=== PATIENT | female | born 1975 | race Caucasian/White ===

== ENCOUNTER 2017-11-13 10:03 | Day surgery (SDC) | payer OTHER ==
[2017-11-13] MEDS ORDERED: LR 1,000 ML IV ×2 (10:15→13:00)
[2017-11-13] MEDS ORDERED: MIDAZOLAM INJ 2 MG/2 ML VIAL (J2250) As Ordered (10:21)
[2017-11-13] MEDS ORDERED: PROPOFOL 200 MG/20 ML VIAL As Ordered (10:21)
[2017-11-13] MEDS ORDERED: fentaNYL 250 MCG/5 ML INJECTION (J3010) As Ordered (10:21)
[2017-11-13] MEDS ORDERED: dexameTHASONE 4 MG/ML 1ML VIAL (J1100) As Ordered (10:21)
[2017-11-13] MEDS ORDERED: ONDANSETRON 4MG/2ML VIAL (J2405) As Ordered (10:21)
[2017-11-13] MEDS ORDERED: KETOROLAC 60 MG/2 ML VIAL (J1885) As Ordered (10:21)
[2017-11-13] MEDS ORDERED: LIDOCAINE 2% INJ 100 MG/5 ML SDV (FOR ANES.) As Ordered (10:21)
[2017-11-13] MEDS: SILVER NITRATE APPLICATOR As Ordered (10:22)
[2017-11-13 10:53] LABS: HEMATOCRIT 41.6 % (36.0-47.0); HEMOGLOBIN 13.5 g/dl (12.0-15.5); MEAN CORPUSCULAR HEMOGLOBIN 29.5 pg (27.0-33.0); MEAN CORPUSCULAR HGB CONC 32.5 g/dl (32.0-36.5); PLATELET COUNT, AUTOMATED 293 10^3/uL (150-450); RED BLOOD COUNT 4.57 10^6/uL (4.00-5.40); RED CELL DISTRIBUTION WIDTH 13.2 % (11.5-14.5)
[2017-11-13 11:08] LABS: CONTROL LINE HCG INT CTR LINE PRESENT; HCG, SERUM QUALITATIVE NEGATIVE (NEGATIVE)
[2017-11-13] MEDS: ceFAZolin 2 GM/D5W 50 ML IV BAG (J0690 PER 500MG) As Ordered (11:46)
[2017-11-13] MEDS ORDERED: PHENYLephrine HCL 500 MCG/5 ML (100MCG/ML) SYRINGE (J2370) As Ordered (12:11)
[2017-11-13] MEDS: BUPIVACAINE HCL 0.25% 30 ML VIAL As Ordered (12:33)
[2017-11-13] MEDS: ESTROGENS VAGINAL CREAM 30GM As Ordered (12:33)
[2017-11-13] MEDS ORDERED: ONDANSETRON 4MG/2ML VIAL (J2405) IV (13:00)
[2017-11-13] MEDS ORDERED: HYDROMORPHONE HCL 0.5 MG/ 0.5 ML SYRINGE (J1170 PER 1) IV (13:00)
[2017-11-13] MEDS ORDERED: fentaNYL 100 MCG/2 ML INJECTION (J3010) IV (13:00)
[2017-11-13] MEDS: PERCOCET 5MG/325MG TAB PO (13:15)
== END 2017-11-13 14:15 | disposition home or self-care (01) ==
LOC: M SDC 14:15
DX: N75.0 Cyst of Bartholin's gland (principal)
CPT/HCPCS: 56440

== ENCOUNTER → 2018-03-20 | Outpatient (REF) | payer OTHER ==
[~2018-03-20] MED LIST: APAP/CODEINE
== END ==
LOC: M LAB REF 16:42
PROVIDERS: ATTEND Podiatrist Foot & Ankle Surgery
DX: L60.0 Ingrowing nail (principal)

== ENCOUNTER 2018-09-01 01:14 | Emergency (ER) | payer OTHER ==
[~2018-09-01] VITALS: Ht 154.9 cm; Wt 67.7 kg
[2018-09-01] MEDS ORDERED: ONDANSETRON 4 MG ORAL DISINTEGRATING TAB (Q0162 PER 1MG) PO ONE (02:45)
--- NOTE | 2018-09-01 04:00 | REPVR ---
EXAM: CT Head Without Contrast EXAM DATE/TIME: 09/01/2018 2:51 AM CLINICAL HISTORY: 42 years old, female; Injury or trauma; Fall; Initial encounter; Blunt trauma (contusions or hematomas); Injury date: Today; Additional info: Tr TECHNIQUE: Imaging protocol: Computed tomography images of the head without contrast. Radiation optimization: All CT scans at this facility use at least one of these dose optimization techniques: automated exposure control; mA and/or kV adjustment per patient size (includes targeted exams where dose is matched to clinical indication); or iterative reconstruction. COMPARISON: No relevant prior studies available. FINDINGS: Brain: The cortical/white matter interfaces are preserved throughout the brain. There is no evidence of intracranial hemorrhage. Ventricles: The ventricular system is normal in size and configuration. Bones/joints: No acute fractures of the skull are identified. Sinuses: The visualized paranasal sinuses are clear. Mastoid air cells: The mastoid air cells are clear. Soft tissues: Unremarkable. IMPRESSION: Normal appearance of the brain. No evidence of acute intracranial injury. Electronically signed by: Melany Daniel On 09/01/2018 03:59:52 AM
--- NOTE | 2018-09-01 04:08 | REPVR ---
EXAM: CT Cervical Spine Without Contrast EXAM DATE/TIME: 09/01/2018 2:51 AM CLINICAL HISTORY: 42 years old, female; Injury or trauma; Fall; Initial encounter; Blunt trauma; Injury date: Today; Additional info: Tr TECHNIQUE: Imaging protocol: Computed tomography images of the cervical spine without contrast. Coronal and sagittal reformatted images were created and reviewed. Radiation optimization: All CT scans at this facility use at least one of these dose optimization techniques: automated exposure control; mA and/or kV adjustment per patient size (includes targeted exams where dose is matched to clinical indication); or iterative reconstruction. COMPARISON: No relevant prior studies available. FINDINGS: Vertebrae: There is straightening of the cervical lordosis without subluxations. There is no evidence of acute fracture. Small anterior endplate spurs are seen from C4-C5 through C6-C7. Discs/Spinal canal/Neural foramina: At C4-C5, there is mild uncovertebral ridging. There is a small left paracentral disc protrusion. There is no significant central or foraminal narrowing. There is uncovertebral ridging and a disc osteophyte complex at C5-C6. There is asymmetric extension in the right paracentral location. There is mild central canal stenosis and right-sided foraminal narrowing at C5-C6. At C6-C7, there is mild disc narrowing, uncovertebral ridging and a disc osteophyte complex with a left paracentral disc protrusion. There is mild central canal stenosis and bilateral neuroforaminal narrowing, left worse than right. Prevertebral Space: The prevertebral soft tissues appear normal. Soft tissues: The paraspinous soft tissues appear unremarkable. Lungs: The visualized lungs are grossly clear. IMPRESSION: 1. Straightening of the cervical lordosis no subluxations or fractures identified. 2. Degenerative disc disease. Small asymmetric disc osteophyte complexes/protrusions at C4-C5, C5-C6, and C6-C7. Electronically signed by: Melany Daniel On 09/01/2018 04:07:38 AM
[2018-09-01 04:15] VITALS: BP 123/66
--- NOTE | 2018-09-01 04:15 | REPVR ---
EXAM: CT Chest Without Contrast EXAM DATE/TIME: 09/01/2018 2:51 AM CLINICAL HISTORY: 42 years old, female; Injury or trauma; Fall; Initial encounter; Blunt trauma (contusions or hematomas); Injury date: Today; Patient HX: RT clavical pain; Additional info: Tr TECHNIQUE: Imaging protocol: Axial computed tomography images of the chest without intravenous contrast. Coronal and sagittal reformatted images were created and reviewed. 3D rendering: MIP reconstructed images were created and reviewed. Radiation optimization: All CT scans at this facility use at least one of these dose optimization techniques: automated exposure control; mA and/or kV adjustment per patient size (includes targeted exams where dose is matched to clinical indication); or iterative reconstruction. COMPARISON: No relevant prior studies available. FINDINGS: Lungs: There is mild peripheral hazy density in the dependent portions of both lungs and predominantly linear opacities at both lung bases, likely due to to incomplete expansion and mild subsegmental atelectasis. Pleural space: There are no pleural effusions present. No pneumothorax is seen. Heart: The heart is normal in size. Aorta: The aorta is normal. No aneurysm. Lymph nodes: No lymphadenopathy is seen. Bones/joints: A focus of calcification is seen adjacent to the right humeral head, related to calcific tendinitis in the rotator cuff tendon. There is no evidence of acute fracture. Soft tissues: Unremarkable. IMPRESSION: 1. No evidence of acute traumatic injury in the chest. 2. Subsegmental atelectasis. 3. Unremarkable appearance of the right clavicle. Calcification consistent with calcific tendinitis in the rotator cuff of the right shoulder. Electronically signed by: Melany Daniel On 09/01/2018 04:15:08 AM
--- NOTE | 2018-09-01 06:41 | ECGEPIP ---
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
--- NOTE | 2018-09-03 12:34 | ED PDOC ---
Post-Departure Follow-Up nitza mak faxed formal report of ct c spine for fu Dash Carbone MD Sep 03, 2018 12:34
== END 2018-09-01 04:58 | disposition home or self-care (01) ==
LOC: M ED 01:14
DX: M54.2 Cervicalgia (principal); M25.511 Pain in right shoulder; W10.8XXA Fall (on) (from) other stairs and steps, initial encounter; Y92.098 Other place in other non-institutional residence as the place of occurrence of the external cause
CPT/HCPCS: 70450; 71250; 72125; 93005; 99284; Q0162

== ENCOUNTER 2019-11-27 11:11 | Emergency (ER) | payer OTHER ==
[~2019-11-27] VITALS: Ht 154.9 cm; Wt 61.7 kg
[2019-11-27 13:42] LABS: BASO # 0.1 10^3/uL (0.0-0.2); BASO % 0.7 % (0.0-1.0); EOS % 0.3 % (0.0-3.0); HEMATOCRIT 44.1 % (36.0-47.0); HEMOGLOBIN 13.6 g/dl (12.0-15.5); LYMPH # 1.6 10^3/uL (1.5-5.0); LYMPH % 24.1 % (24.0-44.0); MEAN CORPUSCULAR HEMOGLOBIN 26.3 pg (27.0-33.0); MEAN CORPUSCULAR HGB CONC 30.8 g/dl (32.0-36.5); MEAN CORPUSCULAR VOLUME 85.1 fl (80.0-96.0); MONO # 0.5 10^3/uL (0.0-0.8); MONO % 7.7 % (0.0-5.0); NEUTROPHILS # 4.5 10^3/uL (1.5-8.5); NEUTROPHILS % 67.1 % (36.0-66.0); PLATELET COUNT, AUTOMATED 260 10^3/uL (150-450); RED BLOOD COUNT 5.18 10^6/uL (4.00-5.40); WHITE BLOOD COUNT 6.8 10^3/uL (4.0-10.0)
[2019-11-27 14:11] LABS: ALBUMIN 3.6 GM/DL (3.2-5.2); ALT/SGPT 21 U/L (12-78); BILIRUBIN,DIRECT 0.2 MG/DL (0.0-0.2); BILIRUBIN,TOTAL 0.9 MG/DL (0.2-1.0); CK-MB VALUE MASS < 1.0 NG/ML (<3.6); CPK CREATINE PHOSPHOKINASE 61 U/L (26-192); LIPASE 164 U/L (73-393); MB/CK RELATIVE INDEX 1.64 (< OR =4); TROPONIN I < 0.02 NG/ML (< 0.10)
[2019-11-27] MEDS ORDERED: NS 1,000 ML IV ONE (14:15)
[2019-11-27] MEDS ORDERED: KETOROLAC 30 MG/ML 1ML VIAL IV ONE (14:15)
[2019-11-27] MEDS ORDERED: ONDANSETRON 4MG/2ML VIAL IV ONE (14:15)
[2019-11-27] MEDS ORDERED: ISOVUE-370 76% 100ML VIAL As Ordered ONE (15:01)
--- NOTE | 2019-11-27 16:05 | REPVR ---
PROCEDURE INFORMATION: Exam: CT Abdomen And Pelvis With Contrast Exam date and time: 11/27/2019 3:42 PM Age: 44 years old Clinical indication: Abdominal pain; Localized; Left upper quadrant (luq); Additional info: Luq pain into L shoulder TECHNIQUE: Imaging protocol: Computed tomography of the abdomen and pelvis with intravenous contrast. Axial, coronal and sagittal reformatted images were created and reviewed. Radiation optimization: All CT scans at this facility use at least one of these dose optimization techniques: automated exposure control; mA and/or kV adjustment per patient size (includes targeted exams where dose is matched to clinical indication); or iterative reconstruction. Contrast material: ISOVUE 370; Contrast volume: 100 ml; Contrast route: INTRAVENOUS (IV); COMPARISON: No relevant prior studies available. FINDINGS: Lungs: Mild linear/discoid stranding and groundglass at the lung bases, likely due to atelectasis. Pleural space: Trace pleural effusions. Liver: Diffuse hepatic steatosis. Gallbladder and bile ducts: No radiodense gallstones. No biliary ductal dilatation. Pancreas: Unremarkable. Spleen: Unremarkable. Adrenals: Unremarkable. Kidneys and ureters: No mass. No radiodense calculi. No hydronephrosis. Stomach and bowel: No bowel wall thickening. No obstruction. No pneumatosis. Appendix: Normal. Intraperitoneal space: Trace nonspecific free pelvic fluid, likely physiologic. No organized fluid collection. No free air. Vasculature: Unremarkable. No aneurysm. Lymph nodes: No pathologically enlarged lymph nodes. Urinary bladder: Unremarkable as visualized. Reproductive: Unremarkable. Bones/joints: No acute osseous abnormality. Mild degenerative changes. Soft tissues: Unremarkable. IMPRESSION: 1. No CT evidence of acute intra-abdominal or pelvic pathology. 2. Additional findings, as above. Electronically signed by: Nba Duncan On 11/27/2019 16:05:45 PM
[2019-11-27 16:06] VITALS: BP 116/70
[2019-11-27] MEDS ORDERED: PROT1TAB2 PO (16:13)
[2019-11-27] MEDS ORDERED: GI COCKTAIL 50ML BTL(HYOSCYAMINE/MAALOX/LIDOCAINE VISCOUS)(1:3:1) PO ONE (16:15)
--- NOTE | 2019-11-27 19:34 | ECGEPIP ---
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
== END 2019-11-27 16:27 | disposition home or self-care (01) ==
LOC: M ED 11:11
DX: R11.0 Nausea (principal); R10.12 Left upper quadrant pain
CPT/HCPCS: 74177; 80047; 80076; 81001; 82550; 82553; 83690; 84702; 85025; 93005; 96361; 96374; 96375; 99284; J1885; J2405; Q9967

== ENCOUNTER 2022-12-11 16:21 | Emergency (ER) | payer OTHER ==
[~2022-12-11] VITALS: Ht 154.9 cm; Wt 74.1 kg
[~2022-12-11 16:21] MED LIST changes: +PROT1TAB2 PO
[2022-12-11 19:27] VITALS: BP 131/79; TEMP 98.2; O2SAT 97
== END 2022-12-11 20:21 | disposition home or self-care (01) ==
LOC: M ED 16:21
DX: S00.83XA Contusion of other part of head, initial encounter (principal); M79.642 Pain in left hand; M79.672 Pain in left foot; W10.8XXA Fall (on) (from) other stairs and steps, initial encounter; Y92.009 Unspecified place in unspecified non-institutional (private) residence as the place of occurrence of the external cause; M77.32 Calcaneal spur, left foot